=== PATIENT | female | born 1975 | race Caucasian/White ===

== ENCOUNTER 2023-02-22 22:39 | Outpatient (REF) | payer OTHER, SELFPAY ==
[2023-02-27 09:09] LABS: Age Gdln ACOG Testing Note (.); HPV Aptima Negative (Negative); IGP, Aptima HPV, rfx 16/18,45 Note (.)
== END 2023-02-22 22:40 ==
LOC: LAB 22:39
PROVIDERS: PCP Obstetrics & Gynecology; Visit Provider Obstetrics & Gynecology
DX: Z12.4 Encounter for screening for malignant neoplasm of cervix (principal)
CPT/HCPCS: 87624; G0145